=== PATIENT | female | born 1945 | race Caucasian/White ===

== ENCOUNTER 2019-03-05 20:52 | Emergency (ER) | payer MEDICARE, OTHER ==
[~2019-03-05] VITALS: Ht 162.6 cm; Wt 104.3 kg
--- OUTSIDE RECORDS SUMMARY | 2019-03-05 20:53 | XMS REPORT ---
Author Author [facility] Address Unknown Phone Unavailable Care Team Providers Care Quality Associate Name Role Phone Unavailable Unavailable Problems This patient has no known problems. Allergies, Adverse Reactions, Alerts This patient has no known allergies or adverse reactions. Medications This patient has no known medications.
[2019-03-05] MEDS ORDERED: ASPIRIN 81 MG CHEW TAB PO ONE (21:15)
[2019-03-05] MEDS ORDERED: SODIUM CHLORIDE 0.9% 1000ML 1,000 ML IV SCH (21:15)
--- NOTE | 2019-03-05 21:55 | Diagnostic Imaging Report ---
EXAMINATION: CHEST SINGLE (NOT PORTABLE) INDICATION: ^weakness COMPARISON: None FINDINGS: AP view TUBES and LINES: None. LUNGS: Patient's chin obscures extreme right apex. Lungs are well inflated. There is no evidence of pneumonia or pulmonary edema. Minimal left basilar subsegmental atelectasis. PLEURA: No pleural effusion or pneumothorax. HEART AND MEDIASTINUM: The cardiomediastinal silhouette is unremarkable. BONES AND SOFT TISSUES: No acute osseous lesion. Soft tissues are unremarkable. UPPER ABDOMEN: No free air under the diaphragm. IMPRESSION: No acute thoracic abnormality. Signed by: Dr. Richardson Ha MD on 03/05/2019 9:52 PM
[2019-03-05 22:23] LABS: BASOPHILS % 0.5 % (0.0-1.0); EOSINOPHILS # (AUTO) 0.2 (0.0-0.4); EOSINOPHILS % 3.8 % (0.0-6.0); HEMATOCRIT 40.2 % (34.2-44.1); HEMOGLOBIN 13.3 g/dL (12.0-16.0); LYMPHOCYTES # (AUTO) 1.9 (1.0-3.2); LYMPHOCYTES % 31.8 % (18.0-39.1); MEAN CORPUSCULAR HEMOGLOBIN 27.4 pg (28-32); MEAN CORPUSCULAR HGB CONC 33.1 g/dL (31-35); MEAN CORPUSCULAR VOLUME 82.7 fL (81-99); MONOCYTES # (AUTO) 0.6 (0.2-0.8); MONOCYTES % 10.3 % (4.4-11.3); NEUTROPHILS # (AUTO) 3.1 (2.1-6.9); NEUTROPHILS % 53.3 % (38.7-80.0); PLATELET COUNT 248 x10e3/uL (140-360); RED BLOOD COUNT 4.86 x10e6/uL (3.6-5.1); RED CELL DISTRIBUTION WIDTH 13.7 % (11.7-14.4)
[2019-03-05 22:24] LABS: BILIRUBIN,URINE NEGATIVE (NEGATIVE); CLARITY,URINE CLEAR (CLEAR); COLOR,URINE YELLOW (YELLOW); KETONES,URINE TRACE (NEGATIVE); LEUKOCYTE ESTERASE ,URINE SMALL (NEGATIVE); NITRITE,URINE NEGATIVE (NEGATIVE); PROTEIN,URINE DIPSTICK NEGATIVE (NEGATIVE); URINE UROBILINOGEN 0.2 mg/dL (0.2 - 1)
[2019-03-05 22:31] LABS: BACTERIA,URINE FEW /HPF; EPITHELIAL CELLS,URINE RARE /LPF; RBC,URINE 0-5 /HPF (0-5); WBC,URINE (MAN) 0-5 /HPF (0-5)
--- NOTE | 2019-03-05 22:35 | Diagnostic Imaging Report ---
History:Right-sided weakness Comparison studies:None Technique: Axial images were obtained from the skull base to the vertex. Coronal and sagittal images reconstructed from the axial data. Intravenous contrast: None Dose modulation, iterative reconstruction, and/or weight based adjustment of the mA/kV was utilized to reduce the radiation dose to as low as reasonably achievable. Findings: Scalp/skull: No abnormalities. Extra-axial spaces: No masses. No fluid collections. Brain sulci: Mildly prominent. Ventricles: Mild compensatory dilatation. No hydrocephalus. Parenchyma: Few hypodensities in the supratentorial white matter are small vessel ischemic changes. No masses, hemorrhage, acute or chronic cortical vascular insults. Sellar/suprasellar region: No abnormalities. Craniocervical junction: Patent foramen magnum. No Chiari one malformation. Incidental findings: Atherosclerotic calcifications in the carotid siphons . Impression: No acute abnormalities. Chronic findings: 1. Mild generalized volume loss. 2. Mild supratentorial white matter small vessel ischemic changes. Signed by: DR Lazarus Liao M.D. on 03/05/2019 10:32 PM
[2019-03-05 22:42] LABS: ALANINE AMINOTRANSFERASE 17 IU/L (0-55); ALBUMIN/GLOBULIN RATIO 1.4 (0.8-2.0); ALKALINE PHOSPHATASE 68 IU/L (40-150); ANION GAP 13.6 mmol/L (8-16); BLOOD UREA NITROGEN 16 mg/dL (7-26); BUN/CREATININE RATIO 22 (6-25); CALCIUM 9.6 mg/dL (8.4-10.2); CARBON DIOXIDE 29 mmol/L (22-29); CHLORIDE 92 mmol/L (98-107); CREATININE, SERUM 0.74 mg/dL (0.57-1.11); EST GLOMERULAR FILTRATION RATE > 60 ML/MIN (60-); GLUCOSE 100 mg/dL (74-118); POTASSIUM 3.6 mmol/L (3.5-5.1); SODIUM 131 mmol/L (136-145)
[2019-03-05 22:49] LABS: CREATINE KINASE MB 1.6 ng/mL (0-5.0)
[2019-03-05 23:26] VITALS: BP 177/86
== END 2019-03-05 23:29 | disposition home or self-care (01) ==
LOC: ER 20:52
DX: R42 Dizziness and giddiness (principal); R53.1 Weakness; E86.0 Dehydration
CPT/HCPCS: 36415; 70450; 71045; 80053; 81001; 82550; 82553; 83880; 84484; 85025; 93005; 99284; J7030

== ENCOUNTER 2019-08-29 11:58 | Inpatient (IN) | payer MEDICARE, OTHER ==
[~2019-08-29] VITALS: Ht 162.6 cm; Wt 99.8 kg
--- NOTE | 2019-08-29 12:59 | Diagnostic Imaging Report ---
Chest, portable AP view History: Leg edema Comparison: 03/15/2019 IMPRESSION: The heart is within normal limits of size. There is no focal consolidation, sizable pleural effusion, or pneumothorax. No acute osseous abnormalities. Surgical clips project over the left breast/chest wall. Signed by: Kam Padilla MD on 08/29/2019 12:56 PM
[2019-08-29] MEDS ORDERED: FUROSEMIDE INJ 10 MG/ML 4 ML VIAL IV ONE (13:00)
[2019-08-29 13:09] LABS: BASOPHILS % 0.3 % (0.0-1.0); EOSINOPHILS # (AUTO) 0.1 (0.0-0.4); EOSINOPHILS % 1.1 % (0.0-6.0); HEMATOCRIT 37.1 % (34.2-44.1); HEMOGLOBIN 12.2 g/dL (12.0-16.0); LYMPHOCYTES # (AUTO) 1.5 (1.0-3.2); LYMPHOCYTES % 16.8 % (18.0-39.1); MEAN CORPUSCULAR HEMOGLOBIN 27.7 pg (28-32); MEAN CORPUSCULAR HGB CONC 32.9 g/dL (31-35); MEAN CORPUSCULAR VOLUME 84.1 fL (81-99); MONOCYTES # (AUTO) 1.1 (0.2-0.8); MONOCYTES % 11.8 % (4.4-11.3); NEUTROPHILS # (AUTO) 6.3 (2.1-6.9); NEUTROPHILS % 69.2 % (38.7-80.0); PLATELET COUNT 158 x10e3/uL (140-360); RED BLOOD COUNT 4.41 x10e6/uL (3.6-5.1); RED CELL DISTRIBUTION WIDTH 13.5 % (11.7-14.4)
[2019-08-29 13:18] LABS: INR 0.99; PROTHROMBIN TIME 13.6 seconds (11.9-14.5)
[2019-08-29 13:19] LABS: PARTIAL THROMBOPLASTIN TIME 45.7 seconds (23.8-35.5)
[2019-08-29 13:26] LABS: ALANINE AMINOTRANSFERASE 9 IU/L (0-55); ALBUMIN 3.7 g/dL (3.5-5.0); ALBUMIN/GLOBULIN RATIO 1.1 (0.8-2.0); ALKALINE PHOSPHATASE 69 IU/L (40-150); ANION GAP 14.6 mmol/L (8-16); BLOOD UREA NITROGEN 10 mg/dL (7-26); BUN/CREATININE RATIO 14 (6-25); CALCIUM 9.4 mg/dL (8.4-10.2); CARBON DIOXIDE 28 mmol/L (22-29); CHLORIDE 82 mmol/L (98-107); CREATINE KINASE 50 IU/L (29-168); CREATININE, SERUM 0.71 mg/dL (0.57-1.11); EST GLOMERULAR FILTRATION RATE > 60 ML/MIN (60-); GLUCOSE 105 mg/dL (74-118); MAGNESIUM 1.7 MG/DL (1.3-2.1); POTASSIUM 3.6 mmol/L (3.5-5.1); SODIUM 121 mmol/L (136-145)
[2019-08-29 13:46] LABS: THYROID STIMULATING HORMONE 2.131 uIU/mL (0.350-4.940)
[2019-08-29] MEDS ORDERED: SODIUM CHLORIDE 0.9% 1000ML 1,000 ML IV SCH (14:00)
[2019-08-29 14:40] LABS: BILIRUBIN,URINE NEGATIVE (NEGATIVE); CLARITY,URINE CLEAR (CLEAR); COLOR,URINE YELLOW (YELLOW); KETONES,URINE TRACE (NEGATIVE); LEUKOCYTE ESTERASE ,URINE TRACE (NEGATIVE); NITRITE,URINE NEGATIVE (NEGATIVE); PROTEIN,URINE DIPSTICK NEGATIVE (NEGATIVE); URINE UROBILINOGEN 0.2 mg/dL (0.2 - 1)
[2019-08-29 14:54] LABS: EPITHELIAL CELLS,URINE FEW /LPF; RBC,URINE 0-5 /HPF (0-5); WBC,URINE (MAN) 0-5 /HPF (0-5)
[2019-08-29] MEDS: MORPHINE SULFATE 2 MG/ML SYR 1ML IV PRN (18:40)
[2019-08-29] MEDS: ONDANSETRON HCL INJ 2MG/ML 2ML 2 MG/ML VIAL IV PRN (18:40)
[2019-08-29] MEDS: SODIUM CHLORIDE 0.9% 1000ML 1,000 ML IV SCH (20:21)
[2019-08-29 21:45] VITALS: BP 152/67
[2019-08-30] VITALS (10 sets, daily range): BP systolic 118–157; BP diastolic 58–70
[2019-08-30] MEDS: ONDANSETRON HCL INJ 2MG/ML 2ML 2 MG/ML VIAL IV PRN ×3 (03:08→16:26)
[2019-08-30] MEDS: MORPHINE SULFATE 2 MG/ML SYR 1ML IV PRN ×5 (03:08→22:00)
--- NOTE | 2019-08-30 04:05 | NUR ---
PT IS TRANSFERRED FROM ER AOX3 .RESPIRATIONSARE EVEN AND UNLABORED BILATERAL LOWER EXTREMITIES EDEMA C/O PAIN AT THE LOWER EXTREMITIES RT AC 20G NS AT 75 ML/HR TELE 5 SR.PT IS ON CARDIC DIET .CALL LIGHT WITH IN REACH .CONTINUE TO MONITOR
[2019-08-30] MEDS ORDERED: DEPAKOTE ER500 MG (04:31)
[2019-08-30] MEDS ORDERED: ANASTROZOLE1 MG BLADIN (04:31)
[2019-08-30] MEDS ORDERED: ANASTROZOLE5 GM BLADIN (04:31)
[2019-08-30 06:02] LABS: BASOPHILS % 0.3 % (0.0-1.0); EOSINOPHILS # (AUTO) 0.1 (0.0-0.4); EOSINOPHILS % 0.9 % (0.0-6.0); HEMATOCRIT 32.9 % (34.2-44.1); HEMOGLOBIN 10.9 g/dL (12.0-16.0); LYMPHOCYTES # (AUTO) 1.2 (1.0-3.2); LYMPHOCYTES % 14.8 % (18.0-39.1); MEAN CORPUSCULAR HEMOGLOBIN 27.5 pg (28-32); MEAN CORPUSCULAR HGB CONC 33.1 g/dL (31-35); MEAN CORPUSCULAR VOLUME 83.1 fL (81-99); MONOCYTES # (AUTO) 1.1 (0.2-0.8); MONOCYTES % 13.6 % (4.4-11.3); NEUTROPHILS # (AUTO) 5.6 (2.1-6.9); NEUTROPHILS % 69.9 % (38.7-80.0); PLATELET COUNT 148 x10e3/uL (140-360); RED BLOOD COUNT 3.96 x10e6/uL (3.6-5.1); RED CELL DISTRIBUTION WIDTH 13.4 % (11.7-14.4)
[2019-08-30] MEDS: SODIUM CHLORIDE 0.9% 1000ML 1,000 ML IV SCH (06:05)
[2019-08-30 06:29] LABS: ALANINE AMINOTRANSFERASE 7 IU/L (0-55); ALKALINE PHOSPHATASE 54 IU/L (40-150); ANION GAP 14.2 mmol/L (8-16); BLOOD UREA NITROGEN 10 mg/dL (7-26); BUN/CREATININE RATIO 17 (6-25); CALCIUM 8.5 mg/dL (8.4-10.2); CARBON DIOXIDE 26 mmol/L (22-29); CHLORIDE 83 mmol/L (98-107); EST GLOMERULAR FILTRATION RATE > 60 ML/MIN (60-); GLUCOSE 111 mg/dL (74-118); POTASSIUM 3.2 mmol/L (3.5-5.1); SODIUM 120 mmol/L (136-145)
--- NOTE | 2019-08-30 06:43 | NUR ---
PT C/O PAIN AND GIVEN ORDERED PAIN MEDICATION ,CALL LIGHT WITH IN REACH .CONTINUE TO MONITOR
[2019-08-30 06:58] LABS: CREATINE KINASE MB 0.6 ng/mL (0-5.0)
--- NOTE | 2019-08-30 07:00 | NUR ---
received am report and rounds done. pt is alert oob sitting on the bedside commode, no s/s of distress. pt helped back to bed. call light within reach and instructed pt to call RN for help.
--- NOTE | 2019-08-30 07:19 | NUR ---
BEDSIDE REPORT GIVEN TO THE ONCOMING NURSE
[2019-08-30] MEDS: FUROSEMIDE INJ 10 MG/ML 4 ML VIAL IV SCH (09:00)
[2019-08-30] MEDS ORDERED: POTASSIUM CHLORIDE 20 MEQ TAB CR PO NR (11:45)
--- NOTE | 2019-08-30 15:10 | NUR ---
Visit made by the Spiritual Care Department Pastoral Visitor, Veronica Huber. PV provided pastoral presence, prayer, hospitality, and supportive listening. Pastoral Visitor informed pt/family of the scope of [employer] and availability. WILFRIDO PADILLA Product Support Representative Spiritual Care Department O: [phone] Pager: [phone] ([phone] calling from)
[2019-08-30] MEDS: ENOXAPARIN SOD INJ 40 MG/0.4 ML SYR SC SCH (19:00)
--- NOTE | 2019-08-30 19:41 | NUR ---
RECEIVED PT IN BED AOX3 .C/O OF PAIN CALL LIGHT WITH IN REACH .CONTINUE TO MONITOR
[2019-08-30 20:55] LABS: OSMOLALITY,SERUM OSMOMETER 255 mOsmol/kg (280-301)
[2019-08-31] VITALS (8 sets, daily range): BP systolic 107–166; BP diastolic 55–88
--- NOTE | 2019-08-31 01:00 | Consultation ---
DATE OF CONSULTATION: 08/30/2019 REASON FOR CONSULTATION: Leg edema, shortness of breath, weakness, back pain, leg pain, multiple medical health problems. HISTORY: 74-year-old lady who had history of deep venous thrombosis in 2007. Since then, the patient does have severe leg edema and severe post phlebitic syndrome. She was maintained on two diuretics. She adjust them to keep the fluid out of her leg. She does have easy fatigability. Her activities are very limited because of severe back problem and "bulging disk." She is a survivor of colon cancer or possible mass where she had surgery in 2009. At that time, interestingly, she was seen by Cardiology and she was diagnosed with CHF and she was maintained on several medications. The patient came to this institution because of worsening swelling of the lower extremities and severe pain. She cannot have anything touch her leg. Also, she does have severe low back pain. She is unable to move. She is severely constipated with that. She is unable to do much of activity of any. Her condition is worsening. She denied having any orthopnea or paroxysmal nocturnal dyspnea. She denied having any pleuritic or pericardiac chest pain. She does have some shortness of breath and her baseline was now increased in intensity. REVIEW OF SYSTEMS: Very extensive. Will be summarized for clarity. GENERAL: No fever, no chills. No weight loss. No weight gain. HEENT: No hearing problem. No vision problem. PULMONARY: Easy fatigability, shortness of breath on exertion. No pleuritic. No pericardiac chest pain. No cough. No hemoptysis. CARDIAC: No angina. No orthopnea. No palpitation. No syncope or presyncope. GI: Severe constipation. No hematemesis. No melena. : Incontinence of urine. MUSCULOSKELETAL: Severe low back pain with severe radiculopathy as well as severe peripheral neuropathy. EXTREMITIES: Lower extremities, severe swelling of the lower extremity since 2007, worse after her colon surgery in 2009 with severe post phlebitic syndrome, severe skin changes and edema. NEUROLOGIC: Severe peripheral neuropathy and back problem. No localized deficit, but weakness of the lower extremity and history of seizure disorder, fall for many years' duration. HEMATOLOGY: No easy bruising or bleeding. SKIN: Chronic skin changes of the lower extremities. All others aches and pain over several joints. SOCIAL HISTORY: She is a . She is nonsmoker and non-alcohol drinker. HOME MEDICATIONS: Anastrozole 1 mg daily, Depakote 500 mg twice a day, metolazone 5 mg daily, potassium supplement, Protonix and other p.r.n. medications. ALLERGIES: ADHESIVE TAPE, CODEINE, LIDOCAINE, SULFA, AND PENICILLIN. PAST MEDICAL HISTORY: 1. Hypertension. 2. Right-sided congestive heart failure as per the patient since 2009. 3. Colon cancer, status post surgery 2009. 4. DVT in 2007. 5. Severe post phlebitic syndrome, chronic swelling of the lower extremities. 6. Herniated disk. 7. Seizure disorder since the 40s. 8. Hysterectomy. 9. Hernia repair. 10. Left breast biopsy for cancer 2 years ago and treatment with anastrozole. 11. Debility. FAMILY HISTORY: Father of congestive heart failure. He had pacemaker. He was 86. Mother of lymphoma in her 80s. She lost her son due to prostate cancer in his 60s. One sister who is at age 72. She is having Alzheimer, one healthy daughter at 53. PHYSICAL EXAMINATION: VITAL SIGNS: Height of 5 feet 4 inches, weight of 221 pounds, blood pressure 130/60, heart rate of 60, respiratory rate of 18, and temperature of 96 Fahrenheit. HEENT: Pupils are reactive. NECK: No elevation of jugular venous pulsation. CHEST: Decreased air entry and crackles in both lung bases. HEART: PMI 5th left intercostal space. Normal first and second heart sound. ABDOMEN: Obese. EXTREMITIES: Severe leg swelling, severe skin changes from the knee all the way to the feet, severe evidence of post phlebitic and skin changes noted. NEUROLOGIC: The patient is unable to move her lower extremities because of severe back pain and she is having severe pain by palpation of her lower extremities. LABORATORY DATA: Sodium of 120, potassium 3.2, BUN of 10, and creatinine of 0.6. White blood cell count of 7.9, hemoglobin of 10.9, hematocrit 32%, and platelet count of 148,000. Chest x-ray showed no volume overload. BNP of only 55. CKs are normal. EKG showing sinus bradycardia with nonspecific ST changes. IMPRESSION AND PLAN: 1. Severe postphlebitic syndrome with chronic swelling of the lower extremities, chronic changes. 2. Severe peripheral neuropathy. 3. Possible radiculopathy and low back pain. 4. Obesity. 5. By history congestive heart failure. Most likely if any right-sided congestive heart failure secondary to previous massive pulmonary embolism in 2007 and 2008. 6. Survival of colon mass surgery and diverticulosis. She said it was not a cancer. 7. Left breast cancer status post lumpectomy and hormone suppression therapy. 8. Seizure disorder since age 43. 9. Debility. Cardiac cabrera, treatment will be symptomatic for her cardiac symptoms and leg swelling. DVT prophylaxis is must. The patient's workup for her back as per primary physician. We will follow the patient's progression with you and would like to thank you for your kind referral. MD CAM Welch/DANITZA /[id number]
[2019-08-31] MEDS: MORPHINE SULFATE 2 MG/ML SYR 1ML IV PRN ×6 (02:32→22:06)
[2019-08-31] MEDS: ONDANSETRON HCL INJ 2MG/ML 2ML 2 MG/ML VIAL IV PRN ×3 (06:32→18:08)
--- NOTE | 2019-08-31 06:35 | NUR ---
PT C/O PAIN Q4HRS AND GIVEN ORDERED PAIN MEDICATION .CALL LIGHT WITH IN REACH .CONTINUE TO MONITOR
[2019-08-31 06:43] LABS: BASOPHILS % 0.2 % (0.0-1.0); EOSINOPHILS # (AUTO) 0.1 (0.0-0.4); EOSINOPHILS % 0.7 % (0.0-6.0); HEMATOCRIT 31.7 % (34.2-44.1); HEMOGLOBIN 10.8 g/dL (12.0-16.0); LYMPHOCYTES # (AUTO) 1.2 (1.0-3.2); LYMPHOCYTES % 14.7 % (18.0-39.1); MEAN CORPUSCULAR HEMOGLOBIN 27.8 pg (28-32); MEAN CORPUSCULAR HGB CONC 34.1 g/dL (31-35); MEAN CORPUSCULAR VOLUME 81.7 fL (81-99); MONOCYTES # (AUTO) 1.3 (0.2-0.8); MONOCYTES % 15.6 % (4.4-11.3); NEUTROPHILS # (AUTO) 5.6 (2.1-6.9); NEUTROPHILS % 68.2 % (38.7-80.0); PLATELET COUNT 166 x10e3/uL (140-360); RED BLOOD COUNT 3.88 x10e6/uL (3.6-5.1); RED CELL DISTRIBUTION WIDTH 13.2 % (11.7-14.4)
[2019-08-31 07:01] LABS: ALANINE AMINOTRANSFERASE 7 IU/L (0-55); ALBUMIN 2.8 g/dL (3.5-5.0); ALBUMIN/GLOBULIN RATIO 0.8 (0.8-2.0); ALKALINE PHOSPHATASE 57 IU/L (40-150); ANION GAP 14.3 mmol/L (8-16); BLOOD UREA NITROGEN 12 mg/dL (7-26); BUN/CREATININE RATIO 18 (6-25); CALCIUM 8.8 mg/dL (8.4-10.2); CARBON DIOXIDE 28 mmol/L (22-29); CHLORIDE 80 mmol/L (98-107); CHOLESTEROL 167 MD/DL (0-199); CREATININE, SERUM 0.66 mg/dL (0.57-1.11); EST GLOMERULAR FILTRATION RATE > 60 ML/MIN (60-); GLUCOSE 118 mg/dL (74-118); HDL CHOLESTEROL 42 MG/DL (40-60); LDL CHOLESTEROL 106 MG/DL (60-130); POTASSIUM 3.3 mmol/L (3.5-5.1); TRIGLYCERIDES 94 MG/DL (0-149)
[2019-08-31 07:09] LABS: SODIUM 119 mmol/L (136-145)
[2019-08-31 07:22] LABS: THYROID STIMULATING HORMONE 1.532 uIU/mL (0.350-4.940)
--- NOTE | 2019-08-31 07:26 | NUR ---
BED SIDE REPORT GIVEN TO THE ONCOMING NURSE
--- NOTE | 2019-08-31 07:30 | NUR ---
PATIENT IS ALERT AND IN STABLE CONDITION WITH NO S/S OF RESPIRATORY DISTRESS. NO PAIN VOICED. TELEMETRY APPLIED. CALL LIGHT IS WITHIN REACH, PATIENT INSTRUCTED TO CALL FOR ASSISTANCE NEEDED.
--- NOTE | 2019-08-31 07:31 | NUR ---
NA IS [address] Mark RUIZ AND REPORT GIVEN TO THE ONCOMING NURSE
[2019-08-31] MEDS: FUROSEMIDE INJ 10 MG/ML 4 ML VIAL IV SCH (08:48)
[2019-08-31] MEDS: SENNA-S TABLET PO SCH ×2 (09:33→16:58)
[2019-08-31] MEDS ORDERED: POTASSIUM CHLORIDE 10MEQ EA PO ONE (09:40)
[2019-08-31] MEDS: SODIUM CHLORIDE 1 GM TAB PO SCH ×2 (12:29→21:17)
[2019-08-31] MEDS ORDERED: DEPAKOTE 500 MG PO SCH ×3 (16:00→21:00)
[2019-08-31] MEDS: ENOXAPARIN SOD INJ 40 MG/0.4 ML SYR SC SCH (16:58)
--- NOTE | 2019-08-31 18:19 | NUR ---
Nutrition Screen Note RD Recommendation for Physician: -Continue cardiac diet Plan of Care: RD following, monitoring for tolerance and adequacy Nutrition reason for involvement: MST Primary Diagnose(s): dyspnea, edema, hyponatremia, and weakness PMH: HTN, CHF, Colon cancer s/p surgery 2010, DVT, severe post phlebitic syndrome, chronic swelling of lower extremities, herniated disk, seizure disorder, hernia repair Ht: 64 in Wt:220 lb BMI: 37.8 kg/m2 IBW:[address] Assessment: (08/31/19) Chart reviewed. Labs and meds reviewed. Pt is a 74 year old female admitted with dyspnea, edema, hyponatremia, and weakness. It is noted that pt has severe leg swelling. Pt stated her appetite has been down and eating <50% of meals prior to admission since . Prior to this, pt was eating well. Pt reported her appetite is getting better and is now eating 50% of her meals. Per documentation, pt consumed 50% of her meals today. Pt also mentioned her usual wt is 224 lbs. Pt currently has a wt of 220 lbs in chart. Pt reports some nausea. Will continue to monitor. Current Diet: Cardiac - 1 L/ day fluid restriction Malnutrition Evaluation (08/31/19) The patient does not meet criteria for a specified degree of malnutrition at this time. Will re-evaluate at follow-up as appropriate. Diet Education Needs Assessment: RD is available for diet education as needed. Nutrition Care Level: low Signed: Kym Dickey RD, LD
[2019-08-31] MEDS: DEPAKOTE 500 MG PO SCH (19:06)
--- NOTE | 2019-08-31 19:38 | NUR ---
PATIENT IS IN STABLE CONDITION WITH NO S/S OF RESPIRATORY DISTRESS. PATIENT C/O LOWER LEG PAIN BUT RECENTLY RECEIVED MORPHINE AND ZOFRAN. TELEMETRY APPLIED. BED ALARM APPLIED. CALL LIGHT IS WITHIN REACH, PATIENT INSTRUCTED TO CALL FOR ASSISTANCE NEEDED. REPORT GIVEN TO ONCOMING NURSE.
--- NOTE | 2019-08-31 19:44 | NUR ---
RECEIVED PT IN BED AOX3 .C/O PAIN .RESPIRATIONS ARE EVEN AND UNLABORED .BILATERAL LEGS SWOLLEN .CALL LIGHT WITH IN REACH .CONTINUE TO MONITOR
[2019-08-31] MEDS ORDERED: DEPAKOTE ER 500MG TAB(ONCE DAILY) PO SCH (21:00)
[2019-09-01] VITALS (8 sets, daily range): BP systolic 122–151; BP diastolic 57–75
[2019-09-01] MEDS: MORPHINE SULFATE 2 MG/ML SYR 1ML IV PRN ×4 (05:10→20:28)
--- NOTE | 2019-09-01 06:03 | NUR ---
PT C/O PAIN AND GIVEN ORDERED PAIN MEDICATION .CALL LIGHT WITH IN REACH .CONTINUE TO MONITOR
[2019-09-01 06:06] LABS: BASOPHILS % 0.4 % (0.0-1.0); EOSINOPHILS # (AUTO) 0.1 (0.0-0.4); EOSINOPHILS % 1.6 % (0.0-6.0); HEMATOCRIT 31.7 % (34.2-44.1); LYMPHOCYTES # (AUTO) 1.1 (1.0-3.2); LYMPHOCYTES % 16.8 % (18.0-39.1); MEAN CORPUSCULAR HEMOGLOBIN 28.4 pg (28-32); MEAN CORPUSCULAR HGB CONC 34.7 g/dL (31-35); MEAN CORPUSCULAR VOLUME 81.9 fL (81-99); MONOCYTES # (AUTO) 1.1 (0.2-0.8); MONOCYTES % 15.6 % (4.4-11.3); NEUTROPHILS # (AUTO) 4.3 (2.1-6.9); NEUTROPHILS % 64.7 % (38.7-80.0); PLATELET COUNT 190 x10e3/uL (140-360); RED BLOOD COUNT 3.87 x10e6/uL (3.6-5.1); RED CELL DISTRIBUTION WIDTH 13.3 % (11.7-14.4)
[2019-09-01 06:25] LABS: ALANINE AMINOTRANSFERASE 6 IU/L (0-55); ALBUMIN 2.7 g/dL (3.5-5.0); ALBUMIN/GLOBULIN RATIO 0.8 (0.8-2.0); ALKALINE PHOSPHATASE 68 IU/L (40-150); ANION GAP 15.7 mmol/L (8-16); BLOOD UREA NITROGEN 14 mg/dL (7-26); BUN/CREATININE RATIO 22 (6-25); CALCIUM 8.7 mg/dL (8.4-10.2); CARBON DIOXIDE 28 mmol/L (22-29); CHLORIDE 84 mmol/L (98-107); CREATININE, SERUM 0.65 mg/dL (0.57-1.11); EST GLOMERULAR FILTRATION RATE > 60 ML/MIN (60-); GLUCOSE 106 mg/dL (74-118); POTASSIUM 3.7 mmol/L (3.5-5.1); SODIUM 124 mmol/L (136-145)
[2019-09-01] MEDS: DEPAKOTE 500 MG PO SCH ×2 (07:00→19:04)
--- NOTE | 2019-09-01 07:14 | NUR ---
BEDSIDE REPORT GIVEN TO THE ONCOMING NURSE
--- NOTE | 2019-09-01 07:29 | NUR ---
PATIENT IS ALERT AND IN STABLE CONDITION WITH NO S/S OF RESPIRATORY DISTRESS. PATIENT DENIES PAIN- PATIENT RECENTLY RECEIVED PAIN MEDICATION. TELEMETRY APPLIED. PUREWICK APPLIED. CALL LIGHT IS WITHIN REACH, PATIENT INSTRUCTED TO CALL FOR ASSISTANCE NEEDED.
[2019-09-01] MEDS: POTASSIUM CHLORIDE 10MEQ EA PO SCH (08:02)
[2019-09-01] MEDS: SODIUM CHLORIDE 1 GM TAB PO SCH ×3 (08:02→20:28)
[2019-09-01] MEDS: SENNA-S TABLET PO SCH ×2 (08:02→16:00)
[2019-09-01] MEDS: FUROSEMIDE INJ 10 MG/ML 4 ML VIAL IV SCH (08:04)
[2019-09-01] MEDS: ONDANSETRON HCL INJ 2MG/ML 2ML 2 MG/ML VIAL IV PRN ×3 (10:11→20:28)
[2019-09-01] MEDS: ANASTROZOLE 1 MG TAB PO SCH (10:25)
--- NOTE | 2019-09-01 11:24 | Diagnostic Imaging Report ---
Chest, portable AP view History: CHF Comparison: 22,019, 03/05/2019 IMPRESSION: The heart is within normal limits of size. The mediastinal and hilar contours are unremarkable. There is left basilar atelectasis. No focal consolidation, sizable pleural effusion, or pneumothorax. Signed by: Kam Padilla MD on 09/01/2019 11:20 AM
--- NOTE | 2019-09-01 11:42 | Diagnostic Imaging Report ---
Left ankle, 2 views Clinical indication: Left ankle pain Comparison: None Findings: 2 portable radiographs of the left ankle were obtained. There is no radiographic evidence of acute fracture or dislocation. The ankle mortise is intact. Soft tissue edema is present. Impression: No radiographic evidence of acute fracture or dislocation of the left ankle. Signed by: Kam Padilla MD on 09/01/2019 11:38 AM
--- NOTE | 2019-09-01 11:44 | Diagnostic Imaging Report ---
Left foot, 2 views Clinical indication: Left foot pain Comparison: None Findings: 2 portable radiographs of the left foot. There is no radiographic evidence of acute fracture or dislocation. A plantar calcaneal enthesophyte is present. There are degenerative changes at the first tarsometatarsal joint. Marked soft tissue edema is present. Impression: No radiographic evidence of acute fracture or dislocation of the left foot. Marked soft tissue edema. Signed by: Kam Padilla MD on 09/01/2019 11:41 AM
[2019-09-01] MEDS ORDERED: METOLAZONE 5 MG TAB PO ONE (12:45)
[2019-09-01] MEDS: ENOXAPARIN SOD INJ 40 MG/0.4 ML SYR SC SCH (16:00)
--- NOTE | 2019-09-01 19:06 | NUR ---
Received bedside report from day nurse. Patient resting in bed, no s/s of distress or c/o pain at this time. All safety measures in place. Will continue to monitor.
--- NOTE | 2019-09-01 19:20 | NUR ---
PATIENT IS IN STABLE CONDITION WITH NO S/S OF RESPIRATORY DISTRESS. PAIN MEDICATION GIVEN RECENTLY TO PATIENT ALONG WITH IV ZOFRAN. TELEMETRY APPLIED. LEFT LOWER LEG ELEVATED. BED ALARM APPLIED. CALL LIGHT IS WITHIN REACH, PATIENT INSTRUCTED TO CALL FOR ASSISTANCE NEEDED. REPORT GIVEN TO ONCOMING NURSE.
[2019-09-02 00:04] VITALS: BP 123/71
[2019-09-02] MEDS: ONDANSETRON HCL INJ 2MG/ML 2ML 2 MG/ML VIAL IV PRN ×4 (01:27→15:49)
[2019-09-02] MEDS: MORPHINE SULFATE 2 MG/ML SYR 1ML IV PRN ×4 (01:27→15:49)
[2019-09-02 05:06] VITALS: BP 121/59
[2019-09-02 06:57] LABS: BASOPHILS % 0.5 % (0.0-1.0); EOSINOPHILS # (AUTO) 0.2 (0.0-0.4); EOSINOPHILS % 3.1 % (0.0-6.0); HEMATOCRIT 32.4 % (34.2-44.1); HEMOGLOBIN 10.6 g/dL (12.0-16.0); LYMPHOCYTES # (AUTO) 1.5 (1.0-3.2); LYMPHOCYTES % 24.1 % (18.0-39.1); MEAN CORPUSCULAR HEMOGLOBIN 27.6 pg (28-32); MEAN CORPUSCULAR HGB CONC 32.7 g/dL (31-35); MEAN CORPUSCULAR VOLUME 84.4 fL (81-99); MONOCYTES # (AUTO) 0.9 (0.2-0.8); MONOCYTES % 13.9 % (4.4-11.3); NEUTROPHILS # (AUTO) 3.6 (2.1-6.9); NEUTROPHILS % 57.8 % (38.7-80.0); PLATELET COUNT 203 x10e3/uL (140-360); RED BLOOD COUNT 3.84 x10e6/uL (3.6-5.1); RED CELL DISTRIBUTION WIDTH 13.5 % (11.7-14.4)
[2019-09-02] MEDS: DEPAKOTE 500 MG PO SCH (07:07)
--- NOTE | 2019-09-02 07:09 | NUR ---
Gave bedside report to day nurse. Patient awake and resting in bed, no s/s of distress at this time. C/o of generalized pain. Pain and n/v medication administered along with seizure medication. All safety measures in place.
--- NOTE | 2019-09-02 07:10 | NUR ---
received change of shift report, walking rounds completed at bedside. pt awake, alert, oriented X3, no signs of distress.
[2019-09-02 07:33] LABS: ALBUMIN 2.5 g/dL (3.5-5.0); ALBUMIN/GLOBULIN RATIO 0.8 (0.8-2.0); ALKALINE PHOSPHATASE 75 IU/L (40-150); ANION GAP 13.6 mmol/L (8-16); BLOOD UREA NITROGEN 12 mg/dL (7-26); BUN/CREATININE RATIO 19 (6-25); CALCIUM 8.6 mg/dL (8.4-10.2); CARBON DIOXIDE 31 mmol/L (22-29); CHLORIDE 87 mmol/L (98-107); CREATININE, SERUM 0.63 mg/dL (0.57-1.11); EST GLOMERULAR FILTRATION RATE > 60 ML/MIN (60-); GLUCOSE 95 mg/dL (74-118); POTASSIUM 3.6 mmol/L (3.5-5.1); SODIUM 128 mmol/L (136-145)
[2019-09-02 07:39] LABS: ALANINE AMINOTRANSFERASE < 6 IU/L (0-55)
[2019-09-02 08:00] VITALS: BP 119/57
[2019-09-02 08:38] VITALS: BP 121/59
[2019-09-02] MEDS: POTASSIUM CHLORIDE 10MEQ EA PO SCH (09:05)
[2019-09-02] MEDS: FUROSEMIDE INJ 10 MG/ML 4 ML VIAL IV SCH (09:05)
[2019-09-02] MEDS: ANASTROZOLE 1 MG TAB PO SCH (09:05)
[2019-09-02] MEDS: SENNA-S TABLET PO SCH ×2 (09:06→15:48)
[2019-09-02] MEDS: SODIUM CHLORIDE 1 GM TAB PO SCH ×2 (09:06→15:48)
--- NOTE | 2019-09-02 10:05 | NUR ---
SIGNED CHOICE FOR [facility] FILED IN CHART
--- NOTE | 2019-09-02 10:30 | Discharge Summary ---
ADMITTING DIAGNOSES: 1. Acute on chronic diastolic heart failure with preserved left ventricular ejection fraction. 2. Hyponatremia. 3. History of breast cancer, in remission. 4. Physical debility. 5. Colon cancer, in remission. 6. Seizure disorder. 7. Severe peripheral neuropathy. 8. Obesity, BMI of 37. DISCHARGE DIAGNOSES: 1. Acute on chronic diastolic heart failure, resolving. 2. Severe peripheral neuropathy. 3. Hyponatremia, resolving. 4. Seizure disorder. 5. Colon cancer, in remission. 6. Breast cancer, in remission. 7. Obesity, BMI of 37. 8. Physical debility. HOSPITAL COURSE: This is a 74-year-old white woman, who was initially admitted to [facility] with diagnosis of acute on chronic diastolic heart failure. The patient underwent echocardiogram during this hospitalization, which revealed a preserved left ventricular ejection fraction 58%, but did reveal findings consistent with diastolic dysfunction. The patient improved clinically in regard to heart failure with intravenous furosemide. The patient was also found to have profound hyponatremia during this hospitalization, but did improve with fluid restriction and with commencement of oral sodium chloride. The patient's sodium did get as low as 119 during this hospitalization. On discharge, it is 128. Decision was made to transfer the patient to a nursing home facility, where she could receive continued monitoring of her serum electrolytes as well as daily physical therapy. The patient was seen by Cardiology during this hospitalization, namely Dr. Sandy Mustafa. CONDITION ON DISCHARGE: Stable. DISCHARGE MEDICATIONS: 1. Sodium chloride 2 g t.i.d. only for one week. 2. Senna S 1 b.i.d. 3. Potassium chloride 40 mEq daily. 4. Anastrozole 1 mg daily. 5. Furosemide 40 mg p.o. b.i.d. 6. Buckeye 5/325, one pill every 6 hours p.r.n. pain, 60 prescribed, no refills. 7. Depakote 500 mg b.i.d. FOLLOWUP INSTRUCTIONS: As previously stated, the patient will be transferred to a local nursing home facility, namely [facility]. The patient will be under the care of her attending namely, Dr. Sarbjit Vega. MD TANYA Hardin/DANITZA /[id number] cc: MD Sandy Brady MD
--- NOTE | 2019-09-02 10:50 | NUR ---
EDUCATED ABOUT IMM, SIGNED, FILED IN CHART, WITH COPY LEFT WITH FAMILY AT BEDSIDE. COMPLETED RTF AND PASRR AND PUT IN CHART AND PACKET.
[2019-09-02 12:00] VITALS: BP 148/69
[2019-09-02] MEDS: ENOXAPARIN SOD INJ 40 MG/0.4 ML SYR SC SCH (15:54)
[2019-09-02 16:00] VITALS: BP 139/63
--- NOTE | 2019-09-02 17:16 | NUR ---
REPORT CALLED TO [facility]; CALLED EMS FOR TRANSPORT WHO REPORT ETA OF ABOUT 1 HOUR.
== END 2019-09-02 18:15 | DRG 292 ==
LOC: ER 11:58 → ERHOLD 14:01 → MED/SURG3 20:33
DX: I11.0 Hypertensive heart disease with heart failure (principal); E87.1 Hypo-osmolality and hyponatremia; I50.33 Acute on chronic diastolic (congestive) heart failure; I87.093 Postthrombotic syndrome with other complications of bilateral lower extremity; E66.9 Obesity, unspecified; Z68.37 Body mass index [BMI] 37.0-37.9, adult; R53.81 Other malaise; G40.909 Epilepsy, unspecified, not intractable, without status epilepticus; Z85.3 Personal history of malignant neoplasm of breast; Z86.711 Personal history of pulmonary embolism; M54.10 Radiculopathy, site unspecified; Z85.038 Personal history of other malignant neoplasm of large intestine; E87.6 Hypokalemia; K59.00 Constipation, unspecified; Z88.5 Allergy status to narcotic agent; Z88.0 Allergy status to penicillin; Z88.2 Allergy status to sulfonamides; Z91.048 Other nonmedicinal substance allergy status; Z83.3 Family history of diabetes mellitus; Z82.49 Family history of ischemic heart disease and other diseases of the circulatory system
CPT/HCPCS: 36415; 71045; 80053; 80061; 80164; 81001; 82550; 82553; 83735; 83880; 83930; 83935; 84300; 84443; 84484; 85025; 85610; 85730; 87086; 93005; 93306; 97139; 99284; J1650; J1940; J2270; J2405; J7030

== ENCOUNTER 2019-09-03 10:27 | Inpatient (IN) | payer MEDICARE, OTHER ==
[~2019-09-03] VITALS: Ht 162.6 cm; Wt 99.8 kg
[~2019-09-03 10:27] MED LIST: ANASTROZOLE1 MG BLADIN; ANASTROZOLE5 GM BLADIN; DEPAKOTE ER500 MG
[2019-09-03 11:17] LABS: BASOPHILS % 0.4 % (0.0-1.0); EOSINOPHILS # (AUTO) 0.2 (0.0-0.4); EOSINOPHILS % 2.1 % (0.0-6.0); HEMOGLOBIN 11.4 g/dL (12.0-16.0); LYMPHOCYTES % 12.4 % (18.0-39.1); MEAN CORPUSCULAR HEMOGLOBIN 27.7 pg (28-32); MEAN CORPUSCULAR HGB CONC 32.6 g/dL (31-35); MONOCYTES # (AUTO) 1.1 (0.2-0.8); MONOCYTES % 13.6 % (4.4-11.3); NEUTROPHILS # (AUTO) 5.5 (2.1-6.9); PLATELET COUNT 267 x10e3/uL (140-360); RED BLOOD COUNT 4.12 x10e6/uL (3.6-5.1); RED CELL DISTRIBUTION WIDTH 13.5 % (11.7-14.4)
[2019-09-03 11:28] LABS: INR 0.98; PROTHROMBIN TIME 13.5 seconds (11.9-14.5)
[2019-09-03 11:28] LABS: CLARITY,URINE HAZY (CLEAR); COLOR,URINE YELLOW (YELLOW); LEUKOCYTE ESTERASE ,URINE 1+ (NEGATIVE)
[2019-09-03 11:29] LABS: BILIRUBIN,URINE NEGATIVE (NEGATIVE); KETONES,URINE NEGATIVE (NEGATIVE); NITRITE,URINE NEGATIVE (NEGATIVE); PROTEIN,URINE DIPSTICK NEGATIVE (NEGATIVE); URINE UROBILINOGEN 0.2 mg/dL (0.2 - 1)
[2019-09-03 11:38] LABS: ALANINE AMINOTRANSFERASE 9 IU/L (0-55); ALBUMIN 2.8 g/dL (3.5-5.0); ALBUMIN/GLOBULIN RATIO 0.7 (0.8-2.0); ALKALINE PHOSPHATASE 88 IU/L (40-150); ANION GAP 15.4 mmol/L (8-16); BLOOD UREA NITROGEN 13 mg/dL (7-26); BUN/CREATININE RATIO 18 (6-25); CALCIUM 9.4 mg/dL (8.4-10.2); CARBON DIOXIDE 32 mmol/L (22-29); CHLORIDE 86 mmol/L (98-107); CREATININE, SERUM 0.71 mg/dL (0.57-1.11); EST GLOMERULAR FILTRATION RATE > 60 ML/MIN (60-); GLUCOSE 101 mg/dL (74-118); POTASSIUM 3.4 mmol/L (3.5-5.1); SODIUM 130 mmol/L (136-145)
[2019-09-03 11:45] LABS: BACTERIA,URINE FEW /HPF; EPITHELIAL CELLS,URINE FEW /LPF; WBC,URINE (MAN) 21-50 /HPF (0-5)
[2019-09-03] MEDS ORDERED: ONDANSETRON HCL INJ 2MG/ML 2ML 2 MG/ML VIAL IV PRN (13:00)
[2019-09-03] MEDS ORDERED: LEVOFLOXACIN 500 MG TAB PO SCH (13:30)
[2019-09-03] MEDS ORDERED: POTASSIUM CHLORIDE 10MEQ EA PO ONE (13:45)
--- NOTE | 2019-09-03 13:47 | NUR ---
CALLED IN TO SPEAK WITH PT ABOUT COMPLAINTS ABOUT PENITENTIARY, FAMILY STATES PT HAS DECLINED FROM YESTERDAY, SPOKE WITH MD AND FOUND UTI AND ADDING ABX AND A [facility] ORDER, WHEN CLINICALS NOT AVAILABLE AT THIS TIME WHEN SYSTEMS TECHNOLOGIST OF H AND P AND ALL NOTES ARE AVAILABLE WILL BE ABLE TO FAX TO [facility] FOR APPROVAL. CHOICE FORM SIGNED FOR ABILITY TO SHARE CLINICALS.
[2019-09-03] MEDS ORDERED: CEFTRIAXONE SOD 1 GM VIAL IV SCH (15:15)
[2019-09-03 15:29] VITALS: BP 132/45
[2019-09-03 15:38] VITALS: BP 132/45
[2019-09-03 15:44] VITALS: BP 133/63
[2019-09-03] MEDS ORDERED: SODIUM CHLORIDE 0.9% 250ML 250 ML ONE (16:13)
--- NOTE | 2019-09-03 16:13 | History and Physical ---
CHIEF COMPLAINT: "It alvarado when I urinate." HISTORY OF PRESENT ILLNESS: This is a 74-year-old white woman, who presents to [facility] Emergency Room with a 2 to 3 day history of frequent urination and dysuria. The patient also states she has a pressure-like feeling in her suprapubic area when she urinates. The patient was actually just discharged here from [facility] yesterday Thursday, September 01, 2019. The patient was transferred to a local halfway facility, but returned today because of suboptimal care according the patient and her adult daughter. In the emergency room, the patient had urinalysis done, which revealed hazy yellow urine, pH of 8, 1+ blood, 1+ leukocyte esterase, 6 to 10 red blood cells per high-power field, 21 to 50 white blood cells per high-power field, and few bacteria. The patient's white blood cell count was 7700 with 71% segmenters. Hemoglobin 11.4 g/dL. The patient's BUN and creatinine were 13 and 0.71 respectively. The patient has history of chronic hyponatremia. Her sodium on this admission is 130. Her potassium is 3.4. The patient had a chest x-ray. The patient was admitted for further evaluation and treatment. The patient did have chest x-ray performed on September 01, 2019, which was unremarkable, but did reveal left basilar atelectasis. REVIEW OF SYSTEMS: GENERAL: Weight is stable. No fever or chills. HEENT: No headaches. No vision changes. CARDIOVASCULAR: No chest pain, no short of breath or cough. GI: No nausea, vomiting, or constipation. : Complains of UTI type symptoms for past two to three days. NEUROMUSCULAR: Complains of chronic swelling in her lower extremities as well as chronic debilitating pain in her bilateral lower legs and feet from her chronic peripheral neuropathy. ALLERGIES: 1. PENICILLIN. 2. SULFA ANTIBIOTICS. 3. ADHESIVE TAPE. 4. CODEINE. 5. LIDOCAINE. FAMILY HISTORY: Mother had lymphoma. Father coronary artery disease. Sister with Alzheimer's dementia. SOCIAL HISTORY: This woman lives alone and has been a for many years. She has adult daughter, who is very much involved in her health care needs. Quit smoking tobacco in 2003. No alcohol use. PAST SURGICAL HISTORY: 1. Colon resection in 2009 because of colon cancer. 2. Left breast malignant tumor resection in 2017. 3. Hysterectomy. 4. Abdominal hernia repair. PAST MEDICAL HISTORY: 1. Chronic diastolic congestive heart failure. 2. Extreme obesity. 3. Severe peripheral neuropathy. 4. Lower leg edema secondary to chronic venous insufficiency. 5. Chronic hyponatremia. 6. Extreme obesity. 7. Seizure disorder. 8. History of colon cancer (2009), in remission. 9. History of breast cancer (2017), in remission. 10. Physical debility. 11. Hypertensive heart disease. 12. History of deep venous thrombosis in 2007. HOME MEDICATIONS: 1. Sodium chloride 2 g t.i.d. for a total of seven days. 2. Senna S one b.i.d. 3. Potassium chloride 40 mEq daily. 4. Anastrozole 1 mg daily. 5. Furosemide 40 mg b.i.d. 6. Campbell 5/325 one pill every 6 hours p.r.n. pain. 7. Depakote 5 mg b.i.d. PHYSICAL EXAMINATION: GENERAL: She is awake, alert, fluent, distress, very pleasant female. VITAL SIGNS: Height 5 feet 4 inches, weight is 224 pounds, BMI 38. Blood pressure is 132/46, pulse 66, respiratory rate 18, temperature 98.0, oxygen saturation 96% on room air. INTEGUMENT: Skin is warm and dry. No pallor, jaundice, or diaphoresis. HEENT: Anterior sclerae with moist mucous membranes. NECK: Supple. No evidence of jugular venous distention. CARDIOVASCULAR: Distant heart sounds. Regular rate and rhythm with a faint systolic ejection murmur. LUNGS: No rales. No rhonchi or wheezes. ABDOMEN: Obese, yet benign. EXTREMITIES: The patient has erythematous discoloration of the distal bilateral lower legs consistent with chronic venous stasis. NEUROLOGIC: Intact. No gross focal deficits, but she has decreased pinprick sensation to plantar aspect of bilateral feet. DIAGNOSES: 1. Urinary tract infection. 2. Chronic diastolic congestive heart failure. 3. Peripheral neuropathy. 4. Bilateral lower leg edema secondary to chronic venous insufficiency. 5. Chronic hyponatremia. 6. Hyponatremia. 7. Obesity, BMI 38. PLAN: 1. We will continue sodium chloride 2 g t.i.d. for a total of 7 more days. 2. Intravenous antibiotics for patient's urine tract infection. 3. Send urine for culture. 4. Continue Depakote 500 mg b.i.d. for seizure disorder. 5. Continue anastrozole 1 mg daily because of a history of breast cancer. 6. Mobilize physical therapy. 7. Pain control. 8. We will monitor patient's electrolytes. 9. Replete potassium. 10. We will consider long-term acute care facility for this patient. I spent an hour in the care of the patient. MD TANYA Hardin/DANITZA /[id number]
[2019-09-03] MEDS: SENNA-S TABLET PO SCH (16:16)
[2019-09-03] MEDS: CEFTRIAXONE SOD 1 GM/NS 50 ML 50 ML IV SCH (16:16)
--- NOTE | 2019-09-03 16:49 | Diagnostic Imaging Report ---
EXAMINATION: CHEST SINGLE (PORTABLE) INDICATION: CHF. COMPARISON: Chest radiograph 09/01/2019. FINDINGS: TUBES and LINES: None. LUNGS: Lungs are well inflated. Mild patchy left basilar opacity, likely atelectasis. No new consolidation. Likely calcified granuloma overlying the left upper lung. PLEURA: No pleural effusion or pneumothorax. HEART AND MEDIASTINUM: The cardiomediastinal silhouette is unremarkable. There are atherosclerotic calcifications within the aorta. BONES AND SOFT TISSUES: No acute osseous abnormality. Surgical clips project over the left lower hemithorax. UPPER ABDOMEN: No free air under the diaphragm. IMPRESSION: Mild patchy left basilar opacity, likely atelectasis. No evidence of pulmonary edema. Signed by: Dr. Christopher Carolina MD on 09/03/2019 4:46 PM
[2019-09-03] MEDS ORDERED: DEPAKOTE DELAYED-RELEASE TAB 500 MG PO SCH (17:00)
[2019-09-03] MEDS: DEPAKOTE DELAYED-RELEASE TAB 500 MG PO SCH (20:00)
[2019-09-03 20:11] VITALS: BP 148/65
[2019-09-03] MEDS: SODIUM CHLORIDE 1 GM TAB PO SCH (20:29)
[2019-09-03 21:00] VITALS: BP 148/65
[2019-09-03] MEDS: HYDROCODONE/APAP 5MG-325MG TAB PO PRN (21:30)
[2019-09-04] VITALS (8 sets, daily range): BP systolic 118–152; BP diastolic 57–68
[2019-09-04] MEDS: CEFTRIAXONE SOD 1 GM/NS 50 ML 50 ML IV SCH ×2 (04:30→16:32)
[2019-09-04] MEDS: HYDROCODONE/APAP 5MG-325MG TAB PO PRN ×3 (04:30→20:40)
[2019-09-04 05:24] LABS: BASOPHILS % 0.4 % (0.0-1.0); EOSINOPHILS # (AUTO) 0.2 (0.0-0.4); EOSINOPHILS % 2.3 % (0.0-6.0); HEMATOCRIT 33.7 % (34.2-44.1); HEMOGLOBIN 10.7 g/dL (12.0-16.0); LYMPHOCYTES # (AUTO) 1.6 (1.0-3.2); LYMPHOCYTES % 22.1 % (18.0-39.1); MEAN CORPUSCULAR HEMOGLOBIN 27.2 pg (28-32); MEAN CORPUSCULAR HGB CONC 31.8 g/dL (31-35); MEAN CORPUSCULAR VOLUME 85.5 fL (81-99); MONOCYTES % 13.6 % (4.4-11.3); NEUTROPHILS # (AUTO) 4.4 (2.1-6.9); NEUTROPHILS % 60.6 % (38.7-80.0); PLATELET COUNT 227 x10e3/uL (140-360); RED BLOOD COUNT 3.94 x10e6/uL (3.6-5.1); RED CELL DISTRIBUTION WIDTH 13.5 % (11.7-14.4)
[2019-09-04 05:57] LABS: ALANINE AMINOTRANSFERASE 8 IU/L (0-55); ALBUMIN 2.5 g/dL (3.5-5.0); ALBUMIN/GLOBULIN RATIO 0.7 (0.8-2.0); ALKALINE PHOSPHATASE 77 IU/L (40-150); ANION GAP 16.8 mmol/L (8-16); BLOOD UREA NITROGEN 14 mg/dL (7-26); BUN/CREATININE RATIO 23 (6-25); CARBON DIOXIDE 29 mmol/L (22-29); CHLORIDE 90 mmol/L (98-107); CREATINE KINASE 26 IU/L (29-168); CREATININE, SERUM 0.62 mg/dL (0.57-1.11); EST GLOMERULAR FILTRATION RATE > 60 ML/MIN (60-); GLUCOSE 100 mg/dL (74-118); POTASSIUM 3.8 mmol/L (3.5-5.1); SODIUM 132 mmol/L (136-145)
[2019-09-04] MEDS: DEPAKOTE DELAYED-RELEASE TAB 500 MG PO SCH ×2 (08:46→20:40)
[2019-09-04] MEDS: POTASSIUM CHLORIDE 10MEQ EA PO SCH (08:48)
[2019-09-04] MEDS: FUROSEMIDE INJ 10 MG/ML 4 ML VIAL IV SCH (08:49)
[2019-09-04] MEDS: SENNA-S TABLET PO SCH ×2 (08:49→16:33)
[2019-09-04] MEDS: SODIUM CHLORIDE 1 GM TAB PO SCH ×3 (08:49→20:40)
[2019-09-04] MEDS: ANASTROZOLE 1 MG TAB PO SCH (08:49)
--- NOTE | 2019-09-04 19:00 | NUR ---
Bedside rounds completed with morning nurse. Pt alert and orient to name, lying in bed HOB 75 degrees. c/o of mild tasha legs pain. Repositioned legs, pain med given previously. Call light within reach. Will continue to monitor.
[2019-09-05] VITALS: BP 145/66
[2019-09-05] MEDS: HYDROCODONE/APAP 5MG-325MG TAB PO PRN ×2 (02:45→13:44)
[2019-09-05] MEDS: CEFTRIAXONE SOD 1 GM/NS 50 ML 50 ML IV SCH (02:53)
[2019-09-05 04:00] VITALS: BP 125/61
[2019-09-05 05:24] LABS: BASOPHILS % 0.3 % (0.0-1.0); EOSINOPHILS # (AUTO) 0.2 (0.0-0.4); HEMOGLOBIN 10.3 g/dL (12.0-16.0); LYMPHOCYTES # (AUTO) 1.3 (1.0-3.2); LYMPHOCYTES % 16.3 % (18.0-39.1); MEAN CORPUSCULAR HEMOGLOBIN 27.2 pg (28-32); MEAN CORPUSCULAR HGB CONC 32.2 g/dL (31-35); MEAN CORPUSCULAR VOLUME 84.7 fL (81-99); MONOCYTES # (AUTO) 1.2 (0.2-0.8); MONOCYTES % 15.5 % (4.4-11.3); NEUTROPHILS # (AUTO) 4.9 (2.1-6.9); NEUTROPHILS % 63.9 % (38.7-80.0); PLATELET COUNT 226 x10e3/uL (140-360); RED BLOOD COUNT 3.78 x10e6/uL (3.6-5.1); RED CELL DISTRIBUTION WIDTH 13.6 % (11.7-14.4)
[2019-09-05 05:50] LABS: ANION GAP 13.5 mmol/L (8-16); BLOOD UREA NITROGEN 15 mg/dL (7-26); BUN/CREATININE RATIO 27 (6-25); CALCIUM 8.6 mg/dL (8.4-10.2); CARBON DIOXIDE 29 mmol/L (22-29); CHLORIDE 89 mmol/L (98-107); CREATININE, SERUM 0.56 mg/dL (0.57-1.11); EST GLOMERULAR FILTRATION RATE > 60 ML/MIN (60-); GLUCOSE 120 mg/dL (74-118); POTASSIUM 3.5 mmol/L (3.5-5.1); SODIUM 128 mmol/L (136-145)
--- NOTE | 2019-09-05 07:00 | NUR ---
BEDSIDE SHIFT REPORT RECEIVED FROM THE FEEDER TENDER RN. EDUCATED PT ABOUT FALL PRECAUTIONS. CALL LIGHT WITH IN EASY REACH. INSTRUCTED PT TO USE CALL LIGHT FOR ALL THE NEEDS. PT VERBALIZED UNDERSTANDING. BED IS LOW AND LOCKED. SIDE RAILS X2. BED ALARM IS ON. PT DENIES NEEDS AT THIS TIME.
[2019-09-05] MEDS: DEPAKOTE DELAYED-RELEASE TAB 500 MG PO SCH (08:00)
--- NOTE | 2019-09-05 08:05 | Diagnostic Imaging Report ---
Chest, portable AP view History: CHF and left lower lobe atelectasis Comparison: 09/03/2019 IMPRESSION: The heart is within normal limits of size. The mediastinal and hilar contours are unremarkable. Left basilar atelectasis is present. No focal consolidation, sizable pleural effusion, or pneumothorax. Signed by: Kam Padilla MD on 09/05/2019 8:02 AM
[2019-09-05] MEDS: FUROSEMIDE INJ 10 MG/ML 4 ML VIAL IV SCH (08:18)
--- NOTE | 2019-09-05 08:18 | NUR ---
SPOKE WITH FAMILY THEY WANT TO GO TO [facility] TR[facility], COMPLETED PACKET, PASRR, RTF AND FAXED CLINICALS TO [phone], WILL COMPLETE TRANSFER TODAY WHEN GET APPROVAL.
[2019-09-05] MEDS: ANASTROZOLE 1 MG TAB PO SCH (08:19)
[2019-09-05] MEDS: POTASSIUM CHLORIDE 10MEQ EA PO SCH (08:20)
[2019-09-05] MEDS: SENNA-S TABLET PO SCH (08:20)
[2019-09-05] MEDS: SODIUM CHLORIDE 1 GM TAB PO SCH (08:21)
[2019-09-05 08:53] VITALS: BP 136/63
[2019-09-05 09:02] VITALS: BP 118/59
[2019-09-05] MEDS ORDERED: FUROSEMIDE40 MG PO (11:50)
[2019-09-05] MEDS ORDERED: LEVAQUIN500 MG PO (11:51)
[2019-09-05] MEDS ORDERED: NORCO 5-325 TA1 EACH PO (11:52)
--- NOTE | 2019-09-05 11:54 | Discharge Summary ---
ADMITTING DIAGNOSES: 1. Urinary tract infection. 2. Chronic diastolic congestive heart failure. 3. Peripheral neuropathy. 4. Bilateral lower leg edema secondary to chronic venous insufficiency. 5. Chronic hyponatremia. 6. Obesity, BMI 38. DISCHARGE DIAGNOSES: 1. Left lower lobe pneumonia likely gram-negative joyce, resolving. 2. Urinary tract infection. 3. Chronic diastolic congestive heart failure. 4. Peripheral neuropathy. 5. Bilateral lower leg edema secondary to chronic venous insufficiency. 6. Chronic hyponatremia. 7. Obesity, BMI 38. HOSPITAL COURSE: This is a 74-year-old white woman, who was initially admitted to [facility] with diagnosis of urinary tract infection and chronic diastolic heart failure. She also has underlying history of severe peripheral neuropathy as well as chronic lower leg edema secondary to chronic venous insufficiency. Moreover, she has history of chronic hyponatremia. On admission, the patient's sodium was 130. She was started on oral sodium chloride tablets. On admission, the patient was diagnosed with urinary tract infection, was started on intravenous ceftriaxone. Also during this hospitalization, patient had a chest x-ray, which revealed left basilar atelectasis versus infiltrate. The patient improved clinically with intravenous ceftriaxone in regard to urinary tract infection and left lower lobe pneumonia. The patient was also started on intravenous furosemide for congestive heart failure. The patient during this hospitalization she did receive physical therapy. The decision was made to send the patient to a group home facility namely [facility] in [place], [place]. CONDITION ON DISCHARGE: Stable. DISCHARGE MEDICATIONS: 1. Arimidex 1 mg daily. 2. Sodium chloride 2 g t.i.d. for 7 days only. 3. Senna S tablet twice a day. 4. Potassium chloride 40 mEq daily. 5. Furosemide 40 mg by mouth daily. 6. Levaquin 500 mg by mouth daily for 10 days. 7. Depakote Delayed-Release 500 mg b.i.d. 8. Hydrocodone/acetaminophen 5/325 one pill every 6 hours p.r.n. pain, 30 prescribed, no refills. FOLLOW UP INSTRUCTIONS: As previously stated, the patient will be transferred to a group home facility namely the [facility] in [place], [place]. MD TANYA Hardin/DANITZA /[id number]
[2019-09-05] MEDS ORDERED: SODIUM CHLORIDE1 GM PO (11:55)
[2019-09-05] MEDS ORDERED: SENNA LAX8.6 MG PO (11:56)
[2019-09-05] MEDS ORDERED: POTASSIUM CHLO10 ME1 PO (11:57)
[2019-09-05 12:00] VITALS: BP 135/68
[2019-09-05] MEDS ORDERED: POTASSIUM CHLORIDE 10MEQ EA PO NR (12:00)
--- NOTE | 2019-09-05 12:00 | NUR ---
OKAY TO TRANSFER PT PER DR. SHI. PAGED [facility] AND GIVEN REPORT.
--- NOTE | 2019-09-05 13:55 | NUR ---
PT TRANSFERRED TO [facility] VIA [facility]. IV REMOVED. TIP INTACT. DRESSING APPLIED. CHF EDUCATION MATERIAL GIVEN. RX GIVEN TO [facility] COORDINATOR. PT DENIED FURTHER NEEDS.
== END 2019-09-05 14:00 | DRG 690 ==
LOC: ER 10:27 → ERHOLD 12:53 → MED/SURG2 14:41
PROVIDERS: ADMIT Internal Medicine; ATTEND Internal Medicine
DX: N39.0 Urinary tract infection, site not specified (principal); E87.1 Hypo-osmolality and hyponatremia; I50.32 Chronic diastolic (congestive) heart failure; I11.0 Hypertensive heart disease with heart failure; E66.01 Morbid (severe) obesity due to excess calories; G40.909 Epilepsy, unspecified, not intractable, without status epilepticus; Z85.038 Personal history of other malignant neoplasm of large intestine; Z85.3 Personal history of malignant neoplasm of breast; Z86.718 Personal history of other venous thrombosis and embolism; Z79.01 Long term (current) use of anticoagulants; G62.9 Polyneuropathy, unspecified; I87.2 Venous insufficiency (chronic) (peripheral); Z68.38 Body mass index [BMI] 38.0-38.9, adult
CPT/HCPCS: 36415; 71045; 80048; 80053; 81001; 82550; 82948; 83880; 85025; 85610; 87086; 93005; 99284; J0696; J1940; J7050

== ENCOUNTER 2025-02-03 14:23 | Inpatient (IN) | payer MEDICARE, OTHER ==
[~2025-02-03] VITALS: Ht 162.6 cm; Wt 99.8 kg
[~2025-02-03 14:23] MED LIST changes: +FUROSEMIDE40 MG PO; +LEVAQUIN500 MG PO; +NORCO 5-325 TA1 EACH PO; +POTASSIUM CHLO10 ME1 PO; +SENNA LAX8.6 MG PO; +SODIUM CHLORIDE1 GM PO
[2025-02-03 14:45] VITALS: TEMP 97.6
[2025-02-03 16:05] LABS: BASOPHILS % 0.4 % (0.0-1.0); EOSINOPHILS # (AUTO) 0.1 (0.0-0.4); EOSINOPHILS % 1.6 % (0.0-6.0); HEMATOCRIT 38.9 % (34.2-44.1); HEMOGLOBIN 12.5 g/dL (12.0-16.0); LYMPHOCYTES % 29.8 % (18.0-39.1); MEAN CORPUSCULAR HEMOGLOBIN 28.1 pg (28-32); MEAN CORPUSCULAR HGB CONC 32.1 g/dL (31-35); MEAN CORPUSCULAR VOLUME 87.4 fL (81-99); MONOCYTES # (AUTO) 0.7 (0.2-0.8); MONOCYTES % 9.7 % (4.4-11.3); NEUTROPHILS # (AUTO) 3.9 (2.1-6.9); NEUTROPHILS % 58.2 % (38.7-80.0); PLATELET COUNT 213 x10e3/uL (140-360); RED BLOOD COUNT 4.45 x10e6/uL (3.6-5.1); RED CELL DISTRIBUTION WIDTH 13.8 % (11.7-14.4); WHITE BLOOD COUNT 6.71 x10e3/uL (4.8-10.8)
[2025-02-03 16:13] LABS: INR 1.37; PROTHROMBIN TIME 17.6 seconds (11.9-14.5)
[2025-02-03 16:14] LABS: PARTIAL THROMBOPLASTIN TIME 66.9 seconds (23.8-35.5)
[2025-02-03 16:18] LABS: ALBUMIN 3.7 g/dL (3.5-5.0); ALBUMIN/GLOBULIN RATIO 1.2 (0.8-2.0); ANION GAP 17.3 mmol/L (8-16); BILIRUBIN,TOTAL 0.8 mg/dL (0.2-1.2); CALCIUM 8.9 mg/dL (8.4-10.2); CREATININE, SERUM 0.74 mg/dL (0.57-1.11); POTASSIUM 4.3 mmol/L (3.5-5.1); TOTAL PROTEIN 6.9 g/dL (6.5-8.1)
[2025-02-03 16:24] LABS: TROPONIN I 0.009 ng/mL (0-0.300)
[2025-02-03] MEDS ORDERED: ONDANSETRON HCL INJ 2MG/ML 2ML 2 MG/ML VIAL IV PRN (18:30)
[2025-02-03 18:59] VITALS: PULSE 85; RESP 16
[2025-02-03 21:00] VITALS: BP 134/78; PULSE 75; RESP 18; TEMP 98.2; O2SAT 99
[2025-02-03] MEDS: DEPAKOTE DELAYED-RELEASE TAB 500 MG PO SCH (21:00)
[2025-02-03 21:15] VITALS: BP 170/62; PULSE 75; RESP 18; TEMP 98.2; O2SAT 97
[2025-02-03] MEDS ORDERED: PROTONIX20 MG PO (22:17)
[2025-02-03] MEDS ORDERED: ELIQUIS5 MG PO (22:17)
[2025-02-03] MEDS ORDERED: POTASSIUM CHLO20 ME1 PO (22:17)
[2025-02-03] MEDS ORDERED: ATORVASTATIN CA10 MG PO (22:17)
[2025-02-03] MEDS ORDERED: FUROSEMIDE40 MG PO (22:17)
[2025-02-03 23:00] VITALS: BP 179/48; PULSE 67; RESP 18; TEMP 98; O2SAT 98
[2025-02-04] VITALS (13 sets, daily range): BP systolic 119–206; BP diastolic 54–77; PULSE 61–91; RESP 18–20; TEMP 97.9–98; O2SAT 96–100
[2025-02-04] MEDS ORDERED: HYDROCODONE/APAP 5MG-325MG TAB PO SCH (02:45)
[2025-02-04] MEDS ORDERED: POLYETHYLENE GLYCOL 3350 17 GM PACK PO PRN (03:00)
[2025-02-04] MEDS ORDERED: ACETAMINOPHEN 325 MG TAB PO PRN (03:00)
[2025-02-04 06:47] LABS: BASOPHILS % 0.6 % (0.0-1.0); EOSINOPHILS # (AUTO) 0.1 (0.0-0.4); EOSINOPHILS % 2.2 % (0.0-6.0); HEMATOCRIT 39.2 % (34.2-44.1); HEMOGLOBIN 12.7 g/dL (12.0-16.0); LYMPHOCYTES # (AUTO) 1.9 (1.0-3.2); LYMPHOCYTES % 35.8 % (18.0-39.1); MEAN CORPUSCULAR HEMOGLOBIN 28.2 pg (28-32); MEAN CORPUSCULAR HGB CONC 32.4 g/dL (31-35); MEAN CORPUSCULAR VOLUME 87.1 fL (81-99); MONOCYTES # (AUTO) 0.6 (0.2-0.8); MONOCYTES % 11.3 % (4.4-11.3); NEUTROPHILS # (AUTO) 2.7 (2.1-6.9); NEUTROPHILS % 49.9 % (38.7-80.0); PLATELET COUNT 212 x10e3/uL (140-360); RED CELL DISTRIBUTION WIDTH 13.9 % (11.7-14.4); WHITE BLOOD COUNT 5.42 x10e3/uL (4.8-10.8)
[2025-02-04 07:38] LABS: ALBUMIN 3.6 g/dL (3.5-5.0); ALBUMIN/GLOBULIN RATIO 1.3 (0.8-2.0); ANION GAP 14.3 mmol/L (8-16); BILIRUBIN,TOTAL 0.9 mg/dL (0.2-1.2); CALCIUM 9.2 mg/dL (8.4-10.2); CREATININE, SERUM 0.63 mg/dL (0.57-1.11); POTASSIUM 4.3 mmol/L (3.5-5.1); TOTAL PROTEIN 6.3 g/dL (6.5-8.1)
[2025-02-04] MEDS: POTASSIUM CHLORIDE 20 MEQ TAB CR PO SCH ×2 (08:11→16:04)
[2025-02-04] MEDS: AMLODIPINE BESYLATE 10 MG TAB PO SCH (08:11)
[2025-02-04] MEDS: HYDRALAZINE HCL 20 MG/ML VIAL IV PRN (08:11)
[2025-02-04] MEDS: FUROSEMIDE 20 MG TAB PO SCH (08:11)
[2025-02-04] MEDS: DOCUSATE SODIUM 100 MG CAP PO SCH (08:12)
[2025-02-04 08:23] LABS: CHOL/HDL RATIO 3.3 (3.0-3.6)
[2025-02-04 08:43] LABS: FREE T4 (FREE THYROXINE) 1.04 ng/dL (0.8-1.8); THYROID STIMULATING HORMONE 1.846 uIU/mL (0.350-4.940)
[2025-02-04] MEDS ORDERED: DEPAKOTE DELAYED-RELEASE TAB 500 MG PO SCH (09:00)
[2025-02-04] MEDS: HYDROCODONE/APAP 5MG-325MG TAB PO PRN (09:28)
[2025-02-04 10:11] LABS: COLOR,URINE YELLOW (YELLOW)
[2025-02-04 10:12] LABS: BACTERIA,URINE MODERATE /HPF; BILIRUBIN,URINE NEGATIVE (NEGATIVE); CLARITY,URINE CLEAR (CLEAR); EPITHELIAL CELLS,URINE FEW /LPF; GLUCOSE, URINE NEGATIVE (NEGATIVE); KETONES,URINE NEGATIVE (NEGATIVE); LEUKOCYTE ESTERASE ,URINE MODERATE (NEGATIVE); NITRITE,URINE NEGATIVE (NEGATIVE); PH,URINE 7.5 (5 - 7); PROTEIN,URINE DIPSTICK NEGATIVE (NEGATIVE); RBC,URINE 21-50 /HPF (0-5); URINE UROBILINOGEN 0.2 mg/dL (0.2 - 1); WBC,URINE (MAN) >50 /HPF (0-5)
[2025-02-04] MEDS: APIXABAN 5 MG TABLET PO SCH (10:44)
[2025-02-04] MEDS: CYCLOBENZAPRINE HCL 10 MG TAB PO PRN (11:16)
[2025-02-04] MEDS: DEPAKOTE 500 MG PO SCH (19:54)
[2025-02-04] MEDS: ATORVASTATIN 10 MG TAB PO SCH (20:20)
[2025-02-04] MEDS: PANTOPRAZOLE SOD 40 MG TABEC PO SCH (20:20)
[2025-02-05] VITALS (11 sets, daily range): BP systolic 123–154; BP diastolic 57–70; PULSE 54–71; RESP 17–18; TEMP 97.5–98.2; O2SAT 94–100
[2025-02-05 07:23] LABS: BASOPHILS % 0.7 % (0.0-1.0); EOSINOPHILS # (AUTO) 0.2 (0.0-0.4); EOSINOPHILS % 3.2 % (0.0-6.0); HEMATOCRIT 37.6 % (34.2-44.1); HEMOGLOBIN 12.2 g/dL (12.0-16.0); LYMPHOCYTES # (AUTO) 1.7 (1.0-3.2); LYMPHOCYTES % 28.4 % (18.0-39.1); MEAN CORPUSCULAR HGB CONC 32.4 g/dL (31-35); MEAN CORPUSCULAR VOLUME 86.2 fL (81-99); MONOCYTES # (AUTO) 0.6 (0.2-0.8); NEUTROPHILS # (AUTO) 3.4 (2.1-6.9); NEUTROPHILS % 57.5 % (38.7-80.0); PLATELET COUNT 207 x10e3/uL (140-360); RED BLOOD COUNT 4.36 x10e6/uL (3.6-5.1); RED CELL DISTRIBUTION WIDTH 13.9 % (11.7-14.4); WHITE BLOOD COUNT 5.89 x10e3/uL (4.8-10.8)
[2025-02-05 07:40] LABS: ALBUMIN 3.4 g/dL (3.5-5.0); ALBUMIN/GLOBULIN RATIO 1.3 (0.8-2.0); BILIRUBIN,TOTAL 0.7 mg/dL (0.2-1.2); CALCIUM 8.9 mg/dL (8.4-10.2); CREATININE, SERUM 0.64 mg/dL (0.57-1.11); TOTAL PROTEIN 6.1 g/dL (6.5-8.1)
[2025-02-05] MEDS ORDERED: MACROBID 100 M100 MG PO (10:20)
[2025-02-05] MEDS: NITROFURANTOIN MACROCRYSTALS 100 MG CAP PO SCH (10:48)
[2025-02-06] VITALS (12 sets, daily range): BP systolic 118–156; BP diastolic 59–72; PULSE 58–73; RESP 16–19; TEMP 97.3–98.6; O2SAT 96–99
[2025-02-06 08:10] LABS: BASOPHILS % 0.6 % (0.0-1.0); EOSINOPHILS # (AUTO) 0.2 (0.0-0.4); EOSINOPHILS % 4.1 % (0.0-6.0); HEMATOCRIT 43.1 % (34.2-44.1); HEMOGLOBIN 13.9 g/dL (12.0-16.0); LYMPHOCYTES % 38.4 % (18.0-39.1); MEAN CORPUSCULAR HEMOGLOBIN 28.1 pg (28-32); MEAN CORPUSCULAR HGB CONC 32.3 g/dL (31-35); MEAN CORPUSCULAR VOLUME 87.2 fL (81-99); MONOCYTES # (AUTO) 0.6 (0.2-0.8); MONOCYTES % 11.7 % (4.4-11.3); NEUTROPHILS # (AUTO) 2.3 (2.1-6.9); PLATELET COUNT 234 x10e3/uL (140-360); RED BLOOD COUNT 4.94 x10e6/uL (3.6-5.1); RED CELL DISTRIBUTION WIDTH 13.7 % (11.7-14.4); WHITE BLOOD COUNT 5.13 x10e3/uL (4.8-10.8)
[2025-02-06 08:39] LABS: ANION GAP 16.1 mmol/L (8-16); CALCIUM 9.6 mg/dL (8.4-10.2); CREATININE, SERUM 0.68 mg/dL (0.57-1.11); POTASSIUM 4.1 mmol/L (3.5-5.1)
[2025-02-07] VITALS (11 sets, daily range): BP systolic 115–142; BP diastolic 58–72; PULSE 56–83; RESP 16–20; TEMP 97–98.3; O2SAT 95–100
[2025-02-07] MEDS: CEFTRIAXONE 1 GM VIAL IV SCH (15:15)
[2025-02-07] MEDS: LEVOFLOXACIN 750MG/D5W 150ML 150 ML IV SCH (17:29)
[2025-02-08] VITALS (7 sets, daily range): BP systolic 109–141; BP diastolic 57–73; PULSE 60–75; RESP 16–19; TEMP 97.5–98.2; O2SAT 95–100
[2025-02-08 05:51] LABS: BASOPHILS % 0.6 % (0.0-1.0); EOSINOPHILS # (AUTO) 0.2 (0.0-0.4); EOSINOPHILS % 4.7 % (0.0-6.0); HEMATOCRIT 40.7 % (34.2-44.1); HEMOGLOBIN 13.4 g/dL (12.0-16.0); LYMPHOCYTES # (AUTO) 1.8 (1.0-3.2); LYMPHOCYTES % 38.3 % (18.0-39.1); MEAN CORPUSCULAR HEMOGLOBIN 28.3 pg (28-32); MEAN CORPUSCULAR HGB CONC 32.9 g/dL (31-35); MONOCYTES # (AUTO) 0.6 (0.2-0.8); MONOCYTES % 12.7 % (4.4-11.3); NEUTROPHILS # (AUTO) 2.1 (2.1-6.9); NEUTROPHILS % 43.3 % (38.7-80.0); PLATELET COUNT 230 x10e3/uL (140-360); RED BLOOD COUNT 4.73 x10e6/uL (3.6-5.1); RED CELL DISTRIBUTION WIDTH 13.2 % (11.7-14.4); WHITE BLOOD COUNT 4.73 x10e3/uL (4.8-10.8)
[2025-02-08 06:32] LABS: ANION GAP 16.3 mmol/L (8-16); CALCIUM 9.4 mg/dL (8.4-10.2); CREATININE, SERUM 0.69 mg/dL (0.57-1.11); POTASSIUM 4.3 mmol/L (3.5-5.1)
[2025-02-08] MEDS ORDERED: POTASSIUM CHLO20 ME1 PO (12:29)
[2025-02-08] MEDS ORDERED: ACETAMINOPHEN325 M1 PO (12:29)
[2025-02-08] MEDS ORDERED: MIRALAX17 GM PO (12:29)
[2025-02-08] MEDS ORDERED: Docusate Sodium PO (12:29)
[2025-02-08] MEDS ORDERED: CYCLOBENZAPRINE10 MG PO (12:29)
[2025-02-08] MEDS ORDERED: NORVASC10 MG PO (12:29)
== END 2025-02-08 17:30 | DRG 300 ==
LOC: ER 16:00 → ERHOLD 18:35 → MED/SURG2 19:58
PROVIDERS: ADMIT Internal Medicine; ATTEND Internal Medicine
DX: I87.023 Postthrombotic syndrome with inflammation of bilateral lower extremity (principal); I50.32 Chronic diastolic (congestive) heart failure; L03.115 Cellulitis of right lower limb; L03.116 Cellulitis of left lower limb; N39.0 Urinary tract infection, site not specified; I11.0 Hypertensive heart disease with heart failure; G62.9 Polyneuropathy, unspecified; E78.5 Hyperlipidemia, unspecified; B96.20 Unspecified Escherichia coli [E. coli] as the cause of diseases classified elsewhere; E66.01 Morbid (severe) obesity due to excess calories; Z68.37 Body mass index [BMI] 37.0-37.9, adult; R53.81 Other malaise; G40.909 Epilepsy, unspecified, not intractable, without status epilepticus; Z79.01 Long term (current) use of anticoagulants; Z86.718 Personal history of other venous thrombosis and embolism; Z90.49 Acquired absence of other specified parts of digestive tract; Z90.710 Acquired absence of both cervix and uterus; Z85.828 Personal history of other malignant neoplasm of skin; Z85.3 Personal history of malignant neoplasm of breast; Z92.3 Personal history of irradiation; Z91.048 Other nonmedicinal substance allergy status; Z88.0 Allergy status to penicillin; Z88.2 Allergy status to sulfonamides; Z88.5 Allergy status to narcotic agent; Z88.4 Allergy status to anesthetic agent; Z82.49 Family history of ischemic heart disease and other diseases of the circulatory system; Z80.7 Family history of other malignant neoplasms of lymphoid, hematopoietic and related tissues
CPT/HCPCS: 36415; 71045; 80048; 80053; 80061; 81001; 82550; 83036; 83735; 83880; 84100; 84439; 84443; 84484; 85025; 85610; 85730; 87086; 87186; 93005; 93971; 94799; 99252; 99284; J0360; J0696; J2470